=== PATIENT | male | born 1975 | race Caucasian/White ===

== ENCOUNTER 2017-02-17 22:55 | Emergency (ER) | payer OTHER ==
[~2017-02-17] VITALS: Ht 167.6 cm; Wt 72.0 kg
[2017-02-17] MEDS ORDERED: PROTONIX40 M2 PO (23:15)
[2017-02-17] MEDS ORDERED: OXYCODONE15 MG PO (23:16)
[2017-02-17] MEDS ORDERED: MORPHINE SUL30 M5 PO (23:16)
[2017-02-17] MEDS ORDERED: GABAPENTIN400 M2 PO (23:17)
[2017-02-18 01:09] VITALS: BP 104/64
== END 2017-02-18 01:17 | DRG 563 ==
LOC: ED 22:55
DX: S83.92XA Sprain of unspecified site of left knee, initial encounter (principal); S80.211A Abrasion, right knee, initial encounter; S80.212A Abrasion, left knee, initial encounter; Y35.813A Legal intervention involving manhandling, suspect injured, initial encounter

== ENCOUNTER → 2019-01-12 | Day surgery (SDC) | payer MEDICARE, MEDICAID ==
[~2019-01-12] VITALS: Ht 167.6 cm; Wt 67.6 kg
[~2019-01-12] MED LIST: CHANTIX1 MG PO; GABAPENTIN400 M2 PO; HYDROCODONE BIT1 TA7 PO; MORPHINE SUL30 M5 PO; OXYCODONE15 MG PO; PERCOCET 10/31 COMBO PO; PROTONIX40 M2 PO; UNKNOWN MED
[2019-01-12 18:49] VITALS: BP 124/86
== END | disposition home or self-care (01) ==
LOC: ORM 13:20 → PO 13:20 → ORM 18:15
PROVIDERS: ATTEND Orthopaedic Surgery
PROC: 0PSB04Z Reposition Left Clavicle with Internal Fixation Device, Open Approach (ICD-10-PCS; principal; 2019-01-12)
PROC: 3E0T3BZ Introduction of Anesthetic Agent into Peripheral Nerves and Plexi, Percutaneous Approach (ICD-10-PCS; 2019-01-12)
DX: S42.022A Displaced fracture of shaft of left clavicle, initial encounter for closed fracture (principal); W01.0XXA Fall on same level from slipping, tripping and stumbling without subsequent striking against object, initial encounter; Y92.009 Unspecified place in unspecified non-institutional (private) residence as the place of occurrence of the external cause
CPT/HCPCS: J0131; J2710